=== PATIENT | male | born 1970 | race Hispanic/Latino ===

== ENCOUNTER 2019-07-20 22:09 | Emergency (ER) | payer SELFPAY ==
[2019-07-20] MEDS ORDERED: Lidocaine 1% w/Epinephrine 1:100K 20 ML VIAL ONE (22:44)
--- NOTE | 2019-07-20 23:29 | CT ---
Exam: Head CT without contrast HISTORY: Trauma. Injury. COMPARISON: none FINDINGS: Hemorrhage: No intraparenchymal hemorrhage or extra-axial hematoma. Brain parenchyma: Cortical méndez-white matter differentiation is preserved. No mass effect or midline shift. Basilar cisterns are patent. Ventricular system: Ventricles and sulci are patent and symmetric. Calvarium: Intact Scalp: Left frontal scalp hematoma. Associated soft tissue laceration Sinuses and mastoid air cells: Adequate aeration. IMPRESSION: 1. No intracranial posttraumatic sequelae 2. Left frontal scalp post traumatic changes.
--- NOTE | 2019-07-20 23:31 | CT ---
Exam: CT cervical spine without contrast HISTORY: Trauma. Pain. COMPARISON: None FINDINGS: No craniocervical dissociation. Appropriate alignment of the lateral masses of C1 and C2. Intact odon toid process Appropriate alignment of the facets. Soft tissue neck structures: No mass, lymphadenopathy or hematoma. No prevertebral soft tissue swelli ng. Upper mediastinum and lung apices: Unremarkable Central spinal canal: Neural foramina and central spinal canal are patent. Evaluation is limited by t echnique Vertebral bodies: Cervical spine vertebral body height is maintained. No fracture. IMPRESSION: No fracture.
== END 2019-07-21 00:54 | disposition home or self-care (01) ==
LOC: ERS 22:09
DX: S01.81XA Laceration without foreign body of other part of head, initial encounter (principal); S80.812A Abrasion, left lower leg, initial encounter; F10.129 Alcohol abuse with intoxication, unspecified; W01.0XXA Fall on same level from slipping, tripping and stumbling without subsequent striking against object, initial encounter
CPT/HCPCS: 12014; 70450; 72125

== ENCOUNTER 2020-08-01 19:52 | Inpatient (IN) | payer BC ==
[~2020-08-01 19:52] MED LIST: Dexamethasone 20 MG/5 ML VIAL ONE; Ondansetron PF 4 MG/2 ML Vial ONE; Rocuronium Bromide 10 MG/ML (10ML VIAL) ONE; Succinylcholine 200 MG/10 ml SYRINGE FS ONE
[2020-08-01] MEDS ORDERED: Sodium Chloride 0.9% 10 ML ONE (21:03)
[2020-08-01] MEDS ORDERED: Propofol 1,000 MG/100 ML VIAL IV ONE (21:16)
[2020-08-01] MEDS ORDERED: Pantoprazole 80 MG in Sodium Chloride 0.9% 100 ML IVPB SCH (21:51)
[2020-08-01] MEDS ORDERED: Octreotide Acetate 1,250 MCG in Sodium Chloride 0.9% 250 ML 250 ML IVPB SCH (22:00)
[2020-08-01] MEDS ORDERED: cefTRIAXone\\ROCEPHIN 1 GM in Sodium Chloride 0.9% 100 ML IVPB SCH (22:00)
[2020-08-01] MEDS ORDERED: Sodium Chloride 0.9% 50 ML ONE (22:27)
[2020-08-01] MEDS ORDERED: Ventilator Sedation Protocol 1 EACH FS SCH (22:30)
[2020-08-01] MEDS ORDERED: cefTRIAXone\\ROCEPHIN 1 GM VIAL ONE (22:43)
[2020-08-01] MEDS ORDERED: Sodium Chloride 0.9% 100 ML ONE (22:43)
[2020-08-01] MEDS ORDERED: Fentanyl BOLUS 250 ML IVPB PRN (22:45)
[2020-08-01] MEDS ORDERED: Propofol BOLUS 1,000 MG/100 ML VIAL IV PRN (22:45)
[2020-08-01] MEDS ORDERED: Morphine 2 MG/ML VIAL SLOW IVP PRN (22:45)
[2020-08-01] MEDS ORDERED: Fentanyl CADD 100 ML IV SCH (22:45)
[2020-08-01] MEDS ORDERED: Lorazepam 2 MG/ML VIAL SLOW IVP PRN (22:45)
[2020-08-01] MEDS ORDERED: Multivitamins, Adult 10 ML, Folic Acid 1 MG, Thiamine HCl 100 MG in Dextrose 5 %-0.45 %... IV SCH (22:45)
[2020-08-01] MEDS ORDERED: Propofol 1,000 MG/100 ML VIAL IV PRN (22:45)
[2020-08-01 22:47] LABS: Hemoglobin 11.1 g/dL (14.0-18.0); Mean Corpuscular HGB CONC 34.2 g/dL (32.0-36.0); Mean Corpuscular Hemoglobin 32.2 pg (27.0-31.0); Mean Corpuscular Volume 94.3 fL (78.0-98.0); RBC Distribution Width 14.3 % (11.5-14.5); Red Blood Cell (RBC) Count 3.44 mill/uL (4.70-6.10); White Blood Cell (WBC) Count 12.9 thou/uL (4.8-10.8)
[2020-08-01 23:03] LABS: #Lymphocytes 0.4 thou/uL (1.20-3.40); #Monocytes 0.5 thou/uL (0.11-0.59); %Eosinophils 0.1 % (0.0-10.0); %Lymphocytes 3.3 % (21.0-51.0); %Monocytes 3.7 % (0.0-10.0); %Neutrophils 92.9 % (42.0-75.0); Mean Platelet Volume 7.5 fL (7.4-10.4); Platelet Count 48 thou/uL (130-400); Platelet Morphology Comment Appears Decreased
[2020-08-01 23:10] LABS: Actual Bicarbonate (HCO3a) 18.6 mEq/L (22-28); Base Excess (BEa) -7.9 mEq/L (-2.0 to +3.0); CO2 Tension 41.9 mmHg (35.0-45.0); Calcium, Ionized (arterial) 0.93 mmol/L (1.12-1.30); Carboxyhemoglobin (COHb) 0.2 gm% (0.0-3.0); Hemoglobin (Hb) 12.3 g/dL (14.0-18.0); O2 Tension (PaO2), arterial 180.2 mmHg (80.0-100.0); Potassium - ABG Lab 5.77 mmol/L (3.70-5.30); pH, Arterial 7.27 (7.35-7.45)
[2020-08-01 23:12] LABS: ALV-art Gradient 195.225 mmHg (0-20); Puncture Site RRA
[2020-08-01] MEDS ORDERED: diphenhydrAMINE 50 MG/ML VIAL IVP SCH (23:30)
[2020-08-01] MEDS ORDERED: Adenosine 6 MG/2 ML VIAL ONE ×3 (23:41→23:43)
[2020-08-01] MEDS ORDERED: Sodium Chloride 0.9% 1,000 ML IV SCH (23:45)
[2020-08-01] MEDS ORDERED: Phytonadione 10 MG/ML AMP SC SCH (23:59)
[2020-08-02 00:31] LABS: ALT (SGPT) 97 U/L (8-55); AST (SGOT) 256 U/L (5-34); Albumin 2.9 g/dL (3.5-5.0); Alkaline Phosphatase 70 U/L (40-110); Anion Gap 16 mmol/L (10-20); BUN (Urea Nitrogen) 35 mg/dL (8.9-20.6); Bilirubin, Total 3.1 mg/dL (0.2-1.2); Calc. Creatinine Clearance 0 mL/min (70-130); Calcium 6.5 mg/dL (7.8-10.44); Carbon Dioxide 20 mmol/L (22-29); Chloride 110 mmol/L (98-107); Globulin 3.1 g/dL (2.4-3.5); Glucose 176 mg/dL (70-105); Magnesium 1.3 mg/dL (1.6-2.6); Potassium 4.7 mmol/L (3.5-5.1); Sodium 141 mmol/L (136-145)
[2020-08-02 00:54] VITALS: BMI 22.8
[2020-08-02] MEDS ORDERED: Fentanyl CADD 100 ML ONE (00:55)
[2020-08-02] MEDS ORDERED: Magnesium Sulfate 4 GM in Sodium Chloride 0.9% 250 ML 250 ML IVPB SCH (01:30)
[2020-08-02 01:39] VITALS: TEMP 98.9
[2020-08-02] MEDS ORDERED: FLU VACC QS2020-21(6MOS UP)/PF 60 MCG/0.5 ML SYRINGE IM ONE (09:00)
== END 2020-08-02 03:15 | disposition short-term general hospital (02) | DRG 432 ==
LOC: ERS 19:52 → SDC 20:21 → CCU 22:33
PROVIDERS: ADMIT Student in an Organized Health Care Education/Training Program; ATTEND Student in an Organized Health Care Education/Training Program
PROC: 30233L1 Transfusion of Nonautologous Fresh Plasma into Peripheral Vein, Percutaneous Approach (ICD-10-PCS; principal; 2020-08-01)
PROC: 30233N1 Transfusion of Nonautologous Red Blood Cells into Peripheral Vein, Percutaneous Approach (ICD-10-PCS; 2020-08-01)
PROC: 30233R1 Transfusion of Nonautologous Platelets into Peripheral Vein, Percutaneous Approach (ICD-10-PCS; 2020-08-01)
PROC: 30233K1 Transfusion of Nonautologous Frozen Plasma into Peripheral Vein, Percutaneous Approach (ICD-10-PCS; 2020-08-01)
DX: K70.30 Alcoholic cirrhosis of liver without ascites (principal); S06.6X0A Traumatic subarachnoid hemorrhage without loss of consciousness, initial encounter; S06.5X0A Traumatic subdural hemorrhage without loss of consciousness, initial encounter; I85.11 Secondary esophageal varices with bleeding; I47.1 Supraventricular tachycardia; D64.9 Anemia, unspecified; D69.59 Other secondary thrombocytopenia; W01.198A Fall on same level from slipping, tripping and stumbling with subsequent striking against other object, initial encounter
CPT/HCPCS: 36415; 36430; 36600; 71045; 82805; 83735; 84100; 86850; 86900; 86901; 93005; 93010; 94002; 94003; C9113; J0153; J0696; J1100; J1200; J2060; J2270; J2405; J2704; J3010; J3411; J3430; J3475; J3490; J7042; J7050; P9016; P9035; P9059